=== PATIENT | female | born 1985 | race Caucasian/White ===

== ENCOUNTER 2021-03-08 17:00 | Outpatient (RCR) | payer OTHER, SELFPAY | END 2021-03-31 15:00 | disposition home or self-care (01) | LOC: PT.CARL 17:00 | PROVIDERS: Visit Provider Nurse Practitioner Family | DX: M54.2 Cervicalgia (principal) | CPT/HCPCS: 97014; 97110; 97140; 97163; G0283 ==

== ENCOUNTER 2022-01-28 08:04 | Emergency (ER) | payer OTHER, SELFPAY ==
[2022-01-28] VITALS (7 sets, daily range): BP systolic 102–127; BP diastolic 55–78; PULSE 82–115; RESP 17–18; TEMP 37.1–37.2; O2SAT 97–100; BMI 18.5
--- NOTE | 2022-01-28 08:07 | PC.NURSE ---
STEFAN Turcios at BS
--- NOTE | 2022-01-28 08:18 | HMH.EDGENADL ---
ED Disposition Clinical Impression: Pyelonephritis, Numbness Disposition: Home, Self-Care Condition on Discharge: Good Instructions: DI for Kidney Infection Additional Instructions: See your primary care provider for further evaluation of numbness of your ear. Additional instructions for URINARY TRACT INFECTION: Take antibiotic as prescribed. See your physician in 2-3 days for follow up and culture results. Return immediately if you have an uncontrollable fever greater than 102 degrees, severe back or abdominal pain, inability to urinate, or repetitive vomiting. Prescriptions: Cefdinir [Omnicef 300mg Capsule] 300 mg PO BID #20 cap Transmission Status: Pending to [facility] Referrals: Angelika Aragon PA [Primary Care Provider] - - Critical Care Critical Care Time: No Attestation: On 01/28/22, the high probability of a clinically significant, sudden or life threatening deterioration of the following system(s) required my full and direct attention, intervention and personal management. The time I documented below is in addition to time spent performing reported procedures but includes the following listed in this critical care notation. Medical Decision Making - J Carlos Inquiry Pt receiving controlled substance: No Vital Signs: 01/28/22 08:04 01/28/22 08:37 01/28/22 09:13 Temperature 98.8 F Temperature Source Oral Pulse Rate 91 H 91 H Pulse Rate [Right Radial] 115 H Respiratory Rate 18 Blood Pressure 116/76 112/72 Blood Pressure [Right Arm] 116/78 Blood Pressure Mean [Right Arm] 90 Blood Pressure Source Automatic Cuff Automatic Cuff Blood Pressure Source [Right Arm] Automatic Cuff Blood Pressure Position Sitting Sitting Blood Pressure Position [Right Arm] Sitting 02 Sat by Pulse Oximetry 100 100 97 Oxygen Delivery Method Room Air Room Air Room Air 01/28/22 10:08 01/28/22 11:30 01/28/22 12:00 Temperature Temperature Source Pulse Rate 85 91 H 82 Pulse Rate [Right Radial] Respiratory Rate Blood Pressure 117/78 108/62 L 102/55 L Blood Pressure [Right Arm] Blood Pressure Mean [Right Arm] Blood Pressure Source Automatic Cuff Automatic Cuff Automatic Cuff Blood Pressure Source [Right Arm] Blood Pressure Position Sitting Sitting Sitting Blood Pressure Position [Right Arm] 02 Sat by Pulse Oximetry 100 97 98 Oxygen Delivery Method Room Air Room Air - Lab Data Lab Results 01/28/22 08:10: SARS-CoV-2 (PCR) Not detected, Influenza A Untype (PCR) Not detected, Influenza Type B (PCR) Not detected 01/28/22 08:40: Urine Color Yellow, Urine Appearance Clear, Urine pH 5.0, Ur Specific [place] 1.015, Urine Protein 1+, Urine Glucose (UA) Negative, Urine Ketones Negative, Urine Blood 1+, Urine Nitrate Positive, Urine Bilirubin Negative, Urine Urobilinogen 1.0, Ur Leukocyte Esterase 2+ A, Urine RBC None, Urine WBC 10-20, Ur Squamous Epith Cells 3-5, Urine Bacteria 1+, Hyaline Casts Occasional 01/28/22 08:40: WBC 12.4 H, RBC 4.71, Hgb 15.3, Hct 44.1, MCV 93.7, MCH 32.4 H, MCHC 34.6, RDW 12.4, Plt Count 221, MPV 9.7, Neut % (Auto) 88.1 H, Lymph % (Auto) 4.2 L, [place] % (Auto) 5.3, Eos % (Auto) 1.4, Baso % (Auto) 1.0, Neut # (Auto) 11.0 H, Lymph # (Auto) 0.5 L, [place] # (Auto) 0.7, Eos # (Auto) 0.2, Baso # (Auto) 0.1, Total Counted 100, Neutrophils % (Manual) 89 H, Lymphocytes % (Manual) 8 L, Monocytes % (Manual) 3, Platelet Estimate Normal, RBC Morphology Normal 01/28/22 08:40: Sodium 138, Potassium 3.8, Chloride 103, Carbon Dioxide 25, Anion Gap 13.8, BUN 11, Creatinine 0.80, Estimated Creat Clear 76, Estimated GFR 82, Est GFR ( Amer) 99, Glucose 104 H, Calcium 9.4, Total Bilirubin 0.7, AST 29, ALT 20, Alkaline Phosphatase 72, C-Reactive Protein 59.1 H, Total Protein 7.3, Albumin 4.4, Globulin 2.9, Albumin/Globulin Ratio 1.5, Lipase 94 01/28/22 08:40: Serum HCG, Qual Negative 01/28/22 08:40: Urine Opiates Screen Negative, Urine Methadone Screen Negative, Ur Barbitu
--- NOTE | 2022-01-28 08:20 | PC.NURSE ---
ED MD at
[2022-01-28 08:21] LABS: Coronavirus 19, PCR Not Detected (NotDetected); Influenza A, PCR Not Detected (NotDetected); Influenza B, PCR Not Detected (NotDetected)
--- NOTE | 2022-01-28 08:30 | CT_ITS ---
FINAL REPORT CLINICAL HISTORY: headache, numbness around left ear. patient has hair extensions that could not be taken out. FINDINGS: Axial images of the head were obtained without contrast. Coronal reformatted images were also obtained.This study was performed with techniques to keep radiation doses as low as reasonably achievable (ALARA). Individualized dose reduction techniques using automated exposure control or adjustment of mA and/or kV according to the patient's size were employed. There is no evidence of intracranial hemorrhage or mass. The ventricular size is within normal limits. There is no evidence of shift of the midline structures. No abnormal extra axial fluid collection is identified. No skull abnormality is seen on the bone window images. IMPRESSION: No acute intracranial abnormality. Reviewed, Interpreted and Dictated by Lucas Zhao III, MD Transcribed by Som Irwin Authenticated by Lucas Zhao III, MD on 01/28/2022 10:15:51 AM [facility]
--- NOTE | 2022-01-28 08:30 | CT_ITS ---
FINAL REPORT CLINICAL HISTORY: RLQ pain. hx FINDINGS: CT OF THE ABDOMEN AND PELVIS WITH CONTRAST Axial CT images of the abdomen and pelvis were obtained after the administration of intravenous contrast. Coronal reformatted images were also obtained and reviewed.This study was performed with techniques to keep radiation doses as low as reasonably achievable (ALARA). Individualized dose reduction techniques using automated exposure control or adjustment of mA and/or kV according to the patient's size were employed. Abdomen: There is a calcified granuloma in the left lung base. The heart is normal in size. The liver has an unremarkable appearance, without evidence of mass or biliary ductal dilatation. The gallbladder is present. The spleen is unremarkable. No adrenal mass is present. The pancreas has an unremarkable appearance. There is patchy attenuation in the right kidney having appearance consistent with acute pyelonephritis. The aorta is normal in caliber. There is no free fluid or adenopathy. No mass or abnormal fluid collection is seen. Pelvis: The appendix is normal. The urinary bladder is unremarkable. There is a small amount of free fluid that could be reactive or physiologic. There is no evidence of mass or adenopathy. There is no evidence of bowel obstruction. IMPRESSION: Acute right pyelonephritis. Normal appendix. Reviewed, Interpreted and Dictated by Lucas Zhao III, MD Transcribed by Som Irwin Authenticated by Lucas Zhao III, MD on 01/28/2022 11:08:26 AM [facility]
--- NOTE | 2022-01-28 08:31 | XR_ITS ---
FINAL REPORT CLINICAL HISTORY: CP FINDINGS: Two views of the chest were obtained. The heart size and pulmonary vascularity are within normal limits. The mediastinum is normal. No acute pulmonary abnormality is identified. There is no pneumothorax. The bony thorax is intact. IMPRESSION: No active cardiopulmonary disease. Reviewed, Interpreted and Dictated by Lucas Zhao III, MD Transcribed by Som Irwin Authenticated by Lucas Zhao III, MD on 01/28/2022 10:15:52 AM [facility]
--- NOTE | 2022-01-28 08:39 | PC.NURSE ---
patient ambulatory to restroom without complications
--- NOTE | 2022-01-28 08:40 | PC.NURSE ---
patient ambulatory back from restroom without complications
--- NOTE | 2022-01-28 08:43 | ECG_ITS ---
APPROVED REPORT Exam: Resting ECG HR:83 bpm ECG Measurements Heart Rate 83 AXES MI 135 P 62 QRSd 81 QRS 71 QT 332 T 46 QTc 371 Conclusion SINUS RHYTHM WITH SINUS ARRHYTHMIA NORMAL ECG UNCONFIRMED REPORT Electronically signed by : Jabier Ritchie MD 01/29/2022 07:53:35
--- NOTE | 2022-01-28 08:46 | PC.NURSE ---
Call light placed at patients reach, warm blankets given, no other needs at this time
[2022-01-28 08:47] LABS: Microscopic, Urine URINE MICROSCOPIC (MICROSCOPIC)
[2022-01-28 08:50] LABS: Appearance,Urine CLEAR (Clear); Bilirubin,Urine Negative (Negative); Blood, Urine 1+ (Negative); Color,Urine YELLOW (Yellow); Glucose,Urine (UA) Negative (Negative); Ketones,Urine Negative (Negative); Leukocyte Esterase,Urine 2+ (Negative); Nitrate,Urine POSITIVE (Negative); Protein,Urine 1+ (Negative); Specific Gravity, Urine 1.015 (1.005-1.030)
[2022-01-28 08:52] LABS: Basophils # 0.1 K/mm3 (0-0.2); Eosinophils # 0.2 K/mm3 (0.0-0.4); Eosinophils % 1.4 % (0.1-12.0); Hematocrit 44.1 % (37.0-47.0); Hemoglobin 15.3 g/dL (12.2-16.2); Lymphocytes # 0.5 K/mm3 (0.7-4.5); Lymphocytes % 4.2 % (10-50); Mean Corpuscular HGB Conc 34.6 g/dL (31.8-35.4); Mean Corpuscular Hemoglobin 32.4 pg (27.0-31.2); Mean Corpuscular Volume 93.7 fl (81-99); Mean Platelet Volume 9.7 fl (7.4-10.4); Monocytes # 0.7 K/mm3 (0.1-1.0); Monocytes % 5.3 % (1.7-9.3); Neutrophils % 88.1 % (37.0-80.0); Platelet Count 221 K/mm3 (142-424); Red Blood Count 4.71 M/mm3 (4.20-5.40); Red Cell Distribution Width 12.4 % (11.5-17.5); White Blood Count 12.4 K/mm3 (4.8-10.8)
[2022-01-28 08:55] LABS: MANUAL DIFFERENTIAL MANUAL DIFFERENTIAL (MANUAL DIFF)
[2022-01-28 09:02] LABS: Alanine Aminotransferase 20 U/L (12-78); Albumin Level 4.4 g/dl (3.5-5.0); Albumin/Globulin Ratio 1.5 (1.1-1.8); Alkaline Phosphatase 72 U/L (38-126); Anion Gap 13.8 mEq/L (5-15); Aspartate Amino Transferase 29 U/L (14-36); Bilirubin,Total 0.7 mg/dl (0.2-1.3); Blood Urea Nitrogen 11 mg/dl (7-17); Calcium 9.4 mg/dl (8.4-10.2); Carbon Dioxide 25 mmol/L (22.0-30.0); Chloride 103 mmol/L (98-107); Creatine Kinase 44 U/L (30-135); Creatinine Clearance Estimated 76 mL/min (50-200); Estimated Glomerular Filt Rate 82 ml/min (>60); GFR (African American) 99 ML/MIN (>60); Globulin 2.9 g/dL (1.3-3.2); Glucose 104 mg/dl (74-100); Lipase 94 U/L (23-300); Potassium 3.8 mmoL/L (3.5-5.1); Sodium 138 mmol/L (136-145); Total Protein,Serum 7.3 g/dl (6.3-8.2)
[2022-01-28 09:05] LABS: Amphetamine/Metha Screen,Urine Negative ng/ml (<1000); Benzodiazepines Screen,Urine Negative ng/ml (<200)
[2022-01-28 09:06] LABS: Barbiturates Screen,Urine Negative ng/ml (<200); Cannabinoid Screen,Urine Negative ng/ml (<50)
[2022-01-28 09:07] LABS: C-Reactive Protein 59.1 mg/L (0-4); Cocaine Screen,Urine Negative ng/ml (<300)
[2022-01-28 09:08] LABS: Methadone Screen,Urine Negative ng/ml (<300); Opiate Screen,Urine Negative ng/ml (<300)
[2022-01-28 09:09] LABS: HCG Qualitative, Serum Negative (Negative); Phencyclidine Screen,Urine Negative ng/ml (<25)
[2022-01-28 09:10] LABS: Bacteria,Urine 1+ /lpf; Hyaline Casts,Urine Occasional #/lpf (0)
[2022-01-28 09:15] LABS: Lymphocytes % 8 % (10-50); Monocytes % 3 % (2-9); Neutrophils % 89 % (42-76); Total Cells Counted 100
[2022-01-28 09:16] LABS: Platelet Estimate Normal; RBC Morphology Normal
[2022-01-28 09:17] LABS: CKMB Relative Index 0.5 U/L (0-4.0); Creatine Kinase MB < 0.2 ng/ml (0.0-2.03); Erythrocyte Sedimentation Rate 19 mm/hr (0-20); Troponin I < 0.01 ng/ml (0.00-0.034)
[2022-01-28 09:21] LABS: Procalcitonin 0.289 ng/mL (0.0-2.0)
--- NOTE | 2022-01-28 09:27 | PC.NURSE ---
patient to radiology by wheelchair with sonography technician
--- NOTE | 2022-01-28 09:46 | PC.NURSE ---
patient back from Ct with operations and maintenance technican by wheelchair
--- NOTE | 2022-01-28 10:43 | PC.NURSE ---
patient ambulatory to restroom without complications
--- NOTE | 2022-01-28 10:46 | PC.NURSE ---
Patient ambulatory back from restroom without complications
--- NOTE | 2022-01-28 10:49 | PC.NURSE ---
ED MD at speaking with patient giving an update on POC
--- NOTE | 2022-01-28 11:19 | PC.NURSE ---
ED MD at speaking with patient for update on POC
--- NOTE | 2022-01-28 11:20 | PC.NURSE ---
STEFAN Turcios at BS
--- NOTE | 2022-01-28 12:20 | PC.NURSE ---
ED MD at speaking with patient regarding POC
[2022-02-04 07:13] LABS: Lyme B. burgdorferi PCR Blood Negative (Negative)
== END 2022-01-28 12:30 | disposition home or self-care (01) ==
PROVIDERS: Emergency Provider Emergency Medicine; PCP Nurse Practitioner
DX: N10 Acute pyelonephritis (principal); B96.20 Unspecified Escherichia coli [E. coli] as the cause of diseases classified elsewhere; R20.0 Anesthesia of skin
CPT/HCPCS: 70450; 71046; 74177; 80053; 80305; 81001; 82550; 82553; 83690; 84145; 84484; 84703; 85007; 85025; 85651; 86140; 87086; 87088; 87186; 87476; 93005; 99284; C9803; J0696; Q9967; U0003; U0005

== ENCOUNTER 2022-12-19 14:37 | Emergency (ER) | payer OTHER, SELFPAY ==
[2022-12-19 14:50] VITALS: BP 109/82; PULSE 86; RESP 20; TEMP 36.8; O2SAT 100; BMI 19.5
--- NOTE | 2022-12-19 14:51 | EXP.UTC ---
Discharge Plan Disposition Patient Disposition: Home, Self-Care Condition: Good Prescriptions Prescriptions: New cyclobenzaprine 10 mg Tablet 10 mg PO BID PRN (Reason: Muscle Spasm) Qty: 20 0RF methylprednisolone 4 mg Tablets,Dose Pack 4 mg PO DIRECTED Qty: 21 0RF Referrals Follow up/Referrals: Erika Aargon APRN [Primary Care Provider] - See instructions Activity Restrictions/Add. Instructions Additional Instructions/Restrictions: Go home and rest. It would be best if you rested tomorrow too. No heavy lifting. No twisting. Take the medications as directed. The muscle relaxer (cyclobenzaprine--Flexeril) will make you drowsy, so don't drive or operate heavy machinery after taking it. Follow up with your regular doctor. GO TO THE ER FOR ANY WORSENING SYMPTOMS OR CONCERN, ESPECIALLY BOWEL OR BLADDER ISSUES, SADDLE AREA NUMBNESS, FEVER, ETC Clinical Impressions Clinical Impression: Back pain, thoracic Stand Alone Forms Stand Alone Forms: Work/School Release Discharge ED Provider: [place] [facility] General Stated complaint: lung pain Time Seen by Provider: 12/19/22 14:51 History of Present Illness Provider Complaint: She states that for the past 4 days she has had thoracic back pain. 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 She denies shortness of breath and cough. She denies any fever. She does state that twisting and bending makes it worse. Lying down does make it better slightly. Related Data Previous Rx's Medication Instructions Recorded cyclobenzaprine 10 mg tablet 10 mg PO BID PRN Muscle Spasm #20 12/19/22 tabs methylprednisolone 4 mg tablets in 4 mg PO DIRECTED #21 tabs 12/19/22 a dose pack Allergies Allergy/AdvReac Type Severity Reaction Status Date / Time No Known Allergies Allergy Verified 12/19/22 14:57 [facility] Disclaimer: The information contained in this section may have been updated after the patient was seen, as this information can be updated by other users. Social History Smoking Status: Never smoker alcohol intake: never current occupational status: employed Travel in the last 8 weeks: None ROS Obtained: Yes All systems reviewed & no additional complaints except as documented Constitutional Constitutional: Denies chills and Denies fever(s) Eyes Eyes: Denies eye discharge ENT Ears, Nose, Mouth, and Throat: Denies dizziness, Denies otalgia and Denies sore throat Cardiovascular Cardiovascular: Denies chest pain and Denies dyspnea Respiratory Respiratory: Denies shortness of breath, Denies chest congestion, Denies cough, Denies dyspnea, Denies stridor and Denies wheezing Gastrointestinal Gastrointestingal: Denies nausea or vomiting Musculoskeletal Musculoskeletal: Reports as per HPI, Reports back pain and Denies numbness Integumentary/Breasts Skin/Breast: Denies redness, Denies rash and Denies wounds Neurologic Neurologic: Denies dizziness, Denies numbness and Denies paresthesias Allergic/Immunologic Allergic/Immunologic: Denies wheezing Physical Exam General General appearance: alert and in no apparent distress Head Head exam: atraumatic, normocephalic and normal inspection Eye Eye exam: Present normal appearance, PERRL and EOMI ENT ENT exam: Present normal exam, normal oropharynx, mucous membranes moist, TM's normal bilaterally and normal external ear exam Neck Neck exam: Present normal inspection, full ROM and trachea midline; Absent meningismus or lymphadenopathy Chest Chest inspection: Present normal inspection and symmetric chest wall rise; Absent tenderness Respiratory Respiratory exam: Present normal lung sounds bilaterally; Absent respiratory distress Cardiovascular Cardiovascular exam: Present regular rate and normal rhythm; Absent JVD Abdominal Exam Abdominal exam: Present soft and no
[2022-12-19 15:45] VITALS: BP 109/82; PULSE 86; RESP 20; TEMP 36.8; O2SAT 100
== END 2022-12-19 15:44 | disposition home or self-care (01) ==
PROVIDERS: Emergency Provider Nurse Practitioner Family; PCP Nurse Practitioner
DX: M54.6 Pain in thoracic spine (principal); X50.0XXA Overexertion from strenuous movement or load, initial encounter
CPT/HCPCS: 99212; 99214; G0463

== ENCOUNTER 2024-10-26 10:52 | Emergency (ER) | payer OTHER, SELFPAY ==
[2024-10-26 12:06] VITALS: BP 128/80; PULSE 101; RESP 18; TEMP 36.5; O2SAT 100; BMI 19.3
[2024-10-26 12:10] LABS: UTC Influenza A Antigen Positive (Negative); UTC Influenza B Antigen Negative (Negative)
--- NOTE | 2024-10-26 12:22 | EXP.UTC ---
Discharge Plan Disposition Patient Disposition: Home, Self-Care Condition: Good Prescriptions Prescriptions: New oseltamivir [Tamiflu] 75 mg capsule 75 mg PO BID 5 Days Qty: 10 0RF No Action cyclobenzaprine 10 mg Tablet 10 mg PO BID PRN (Reason: Muscle Spasm) Qty: 20 0RF methylprednisolone 4 mg Tablets,Dose Pack 4 mg PO DIRECTED Qty: 21 0RF Referrals Follow up/Referrals: Erika Aragon APRN [Primary Care Provider] - See instructions Activity Restrictions/Add. Instructions Additional Instructions/Restrictions: Viruses can take 7-14 days to run their course. Nasal saline and bulb syringe or nose Regina to remove nasal drainage to help with nasal congestion. Hard to eat, drink, sleep with nasal congestion so important to keep this cleaned out. Monitor temp. Tylenol or Motrin as needed for pain or fever Encourage fluids, water, Gatorade, Powerade, Pedialyte if /toddler/child Warm salt water gargles Warm fluids Sore throat lozenges Sleep elevated Humidifier/vaporizer Follow-up immediately for new or worsening symptoms or no noticeable improvement over the next 48-72 hours. Clinical Impressions Clinical Impression: Influenza A Instructions Patient Instructions: DI for Influenza -- Adult Print Language Print Language: Filipino Discharge ED Provider: Casimiro ([facility])Nora [facility] [place] HPI General Stated complaint: ba runny nose headache cough Mode of Arrival: Ambulatory Source of Information: Patient Time Seen by Provider: 10/26/24 12:08 Description of Symptoms (Recalled from Triage Doc. by RN): BA, COUGH, RUNNY NSOE, FLU EXP HEENT Symptoms (Recalled from RN notes): Yes Resp Symptoms (Recalled from RN notes): Yes Skin Symptoms (Recalled from RN notes): No MS Symptoms (Recalled from RN notes): No Functional Status (Recalled from RN notes): WNL History of Present Illness Provider Complaint: 38-year-old female presents for body aches, cough, runny nose, patient states she has been exposed to flu Related Data Previous Rx's ?Medication ?Instructions ?Recorded cyclobenzaprine 10 mg tablet 10 mg PO BID PRN Muscle Spasm #20 12/19/22 tabs methylprednisolone 4 mg tablets in 4 mg PO DIRECTED #21 tabs 12/19/22 a dose pack oseltamivir 75 mg capsule (Tamiflu) 75 mg PO BID 5 days #10 caps 02/08/25 Allergies Allergy/AdvReac Type Severity Reaction Status Date / Time No Known Allergies Allergy Verified 12/19/22 14:57 Worker's Comp Is this a Worker's Comp case?: No [facility] Disclaimer: The information contained in this section may have been updated after the patient was seen, as this information can be updated by other users. 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 alcohol intake: never current occupational status: employed Travel in the last 8 weeks: None Have you lived/traveled outside [place] in past 30 days?: No Contact w/someone who lives/traveled outside US past 30 days?: No Exposure to someone with infectious disease in past 14 days?: Yes Do you have a fever (greater than 100.4 F or 38 C)?: No Have you tested positive for COVID-19: No Exposed to someone with COVID-19 in past 14 days?: No Do you have a sore throat?: Yes Do you have a cough?: Yes Do you have any weakness?: No Do you have any diarrhea?: No Are you experiencing any unusual bleeding?: No Do you have any muscle aches/pain?: Yes Do you have any abdominal pain?: No Are you experiencing loss of taste or smell?: No ROS Obtained: Yes Systems reviewed as appropriate & no additional complaints except as documented Constitutional Constitutional: Reports system reviewed and no additional complaints, except as documented, Reports as per HPI, Reports body ache, Reports chills and Reports fever(s) ENT Ears, Nose, Mouth, and Throat: Reports system reviewed and no additional complaints, except as documented, Reports as per HPI, Reports nasal congestion, Reports nasal discharge, Reports post nasal drip, Reports sinus pain and Reports sore throat Physical Exam General General appearance: alert and in no apparent distress ENT ENT exam: Present normal exam, normal oropharynx, mucous membranes moist and TM's normal bilaterally Respiratory Respiratory exam: Present normal lung sounds bilaterally Cardiovascular Cardiovascular exam: Present regular rate and normal rhythm Neurological Exam Neurological exam: Present alert and oriented X3 Skin Skin exam: Present warm and intact Medical Decision Making Medical Records Medical records reviewed: Yes I reviewed the patient's medical records. Screening: Per USPSTF and CDC recommendations, given the prevalence of disease in our region, it is our hospital?s policy to screen for HIV and viral Hepatitis for all patients aged 18 and over and those with ongoing risk factors. J Carlos Inquiry Pt receiving controlled substance: No J Carlos was queried for this patient: No Vital Signs: 10/26/24 12:06 Temperature 97.7 F Temperature Source Oral Pulse Rate [Left Brachial] 101 H Respiratory Rate 18 Blood Pressure [Left Arm] 128/80 Blood Pressure Mean [Left Arm] 96 02 Sat by Pulse Oximetry 100 Lab Data Lab results reviewed: Yes I reviewed the patient's lab results. Lab Results 10/26/24 12:09: Influenza Type A Ag Positive A, Influenza Type B Ag Negative
[2024-10-26 12:29] VITALS: BP 128/80; PULSE 101; RESP 18; TEMP 36.5
== END 2024-10-26 12:33 | disposition home or self-care (01) ==
PROVIDERS: Emergency Provider Nurse Practitioner Family; PCP Nurse Practitioner
DX: J10.1 Influenza due to other identified influenza virus with other respiratory manifestations (principal)
CPT/HCPCS: 87804; 99213; G0381

== ENCOUNTER 2025-05-15 07:33 | Day surgery (SDC) | payer OTHER, SELFPAY ==
[2025-05-15 07:52] VITALS: BMI 18.8
[2025-05-15 07:58] VITALS: BP 119/78; PULSE 71; RESP 18; TEMP 36.6; O2SAT 100
--- NOTE | 2025-05-15 08:11 | EXP.OP.NOTE ---
Date of procedure: 05/15/25 Pre-op Diagnosis:: Right lower extremity (medial thigh) lipoma?1.5 cm Post-op Diagnosis:: Same Procedure performed:: Excision of 1.5 cm right lower extremity lipoma Surgeon:: Dereck Nicholson MD Anesthesia: local Estimated blood loss (mL): 5 Operative findings:: Lesion excised in toto Operative note:: After informed consent was obtained the patient was taken to the procedure room. Her right medial thigh region was prepped and draped in a sterile fashion. After infiltration with local anesthetic a transverse incision was made over the palpable lesion. The lesion was excised sharply in toto and passed off for pathologic evaluation. Dissection was taken into the deeper subcutaneous tissue. Thermal cautery was utilized to achieve hemostasis. Skin was reapproximated with interrupted 4-0 nylon. Dressings were applied and the patient was discharged home in stable condition Condition: stable Disposition: no change Specimens:: Right medial thigh lipoma Complications:: No immediate
[2025-05-15] MEDS: LIDOCAINE 1% 20ML MDV 20 ML (08:35)
[2025-05-15 08:47] VITALS: BP 113/78; PULSE 54; RESP 18; O2SAT 100
[2025-05-15 08:59] VITALS: BP 113/78; PULSE 54; RESP 18; O2SAT 100
== END 2025-05-15 08:59 | disposition home or self-care (01) ==
PROVIDERS: PCP Nurse Practitioner; Visit Provider Surgery
PROC: (CPT 11106; principal; 2025-05-15 08:30)
DX: D17.23 Benign lipomatous neoplasm of skin and subcutaneous tissue of right leg (principal); F17.200 Nicotine dependence, unspecified, uncomplicated
CPT/HCPCS: 11106; J2003